=== PATIENT | male | born 1985 | race American Indian/Alaskan Native ===

== ENCOUNTER 2017-01-19 22:11 | Emergency (ER) | payer SELFPAY ==
[2017-01-19] MEDS ORDERED: NACL 0.9% 1000 ML 1,000 ML IV ONE (22:32)
[2017-01-19 23:21] LABS: Urine Drugs of Abuse Note Disclamer
[2017-01-19 23:33] LABS: Alanine Aminotransferase 5 units/L (7-56); Albumin 3.8 g/dL (3.9-5); Albumin/Globulin Ratio 1.4 %; Alkaline Phosphatase 39 units/L (35-129); Anion Gap 20 mmol/L; BUN/Creatinine Ratio 21.66; Bilirubin,Total < 0.2 mg/dL (0.1-1.2); Blood Urea Nitrogen 26 mg/dL (9-20); Calcium 8.7 mg/dL (8.4-10.2); Carbon Dioxide 24 mmol/L (22-30); Creatine Kinase 104 units/L (55-170); Glucose 177 mg/dL (75-100); Potassium 3.8 mmol/L (3.6-5.0); Sodium 135 mmol/L (137-145); Total Protein 6.6 g/dL (6.3-8.2)
[2017-01-19 23:36] LABS: Creatine Kinase MB < 1.0 ng/mL (0.0-4.0)
[2017-01-19 23:46] LABS: Bilirubin,Urine NEG (Negative); Blood,Urine NEG (Negative); Ketones,Urine TR mg/dL (Negative); Leukocyte Esterase,Urine TR (Negative); Mucus,Urine 3+ /HPF; Nitrite,Urine NEG (Negative); Urobilinogen,Urine < 2.0 mg/dL (<2.0)
[2017-01-19 23:56] LABS: Basophils % (Auto) 1.3 % (0.0-1.8); Eosinophils % (Auto) 1.1 % (0.0-4.3); Hematocrit 25.7 % (35.5-45.6); Hemoglobin 8.5 gm/dl (11.8-15.2); Mean Corpuscular HGB Conc 33 % (32-34); Mean Corpuscular Hemoglobin 29 pg (28-32); Mean Corpuscular Volume 87 fl (84-94); Platelet Count 338 K/mm3 (140-440); Red Blood Count 2.97 M/mm3 (3.65-5.03); Red Cell Distribution Width 14.3 % (13.2-15.2); White Blood Count 9.2 K/mm3 (4.5-11.0)
--- NOTE | 2017-01-20 00:19 | Emergency Department Report ---
HPI - General Chief Complaint: Syncope Time Seen by Provider: 01/19/17 22:32 - HPI HPI: The patient is a 31-year-old male who presents for evaluation of headache and seizure-like activity. The patient arrives with family member was present at bedside. She reports that approximately 20 minutes prior to arrival, the patient passed out and exhibited severe and constant shaking and twitching of the arms and legs bilaterally for approximately 10-20 seconds. She states that the patient was confused afterwards. The patient says that he does not recall the event. The patient complains of constant, generalized aching, bilateral headache, moderate in severity, present since his seizure occurred 20 minutes prior to arrival. The patient denies fever, head injury, neck pain, neck stiffness, vision or hearing changes, smell or taste changes, paresthesias, facial drooping, slurred speech, urine or bowel incontinence or retention, or other focal neurological deficit. He admits to heavy marijuana use throughout the day, one consumption, and little water intake. He states that the home that they were in when using the marijuana was very hot as the air-conditioning in the home was out. ED Past Medical Hx - Past Medical History Previous Medical History?: No - Surgical History Past Surgical History?: No - Social History Smoking Status: Current Every Day Smoker Substance Use Type: Alcohol - Medications Home Medications: Home Medications Medication Instructions Recorded Confirmed Last Taken Type HYDROcodone/APAP 7.5-325 [Milton 1 each PO Q8HR PRN #10 tablet 01/20/17 Unknown Rx 7.5-325 mg TAB] Ibuprofen [Motrin] 800 mg PO Q8HR PRN #15 tablet 01/20/17 Unknown Rx Ondansetron [Zofran TAB] 4 mg PO Q8HR PRN #15 tablet 01/20/17 Unknown Rx ED Review of Systems ROS: Stated complaint: PASSED OUT Other details as noted in HPI Constitutional: denies: fever ENT: denies: throat or neck pain Respiratory: denies: cough, shortness of breath Cardiovascular: denies: chest pain Endocrine: denies unexplained weight loss or gain Gastrointestinal: denies: abdominal pain, nausea Genitourinary: denies: dysuria Musculoskeletal: denies: leg swelling Skin: denies: rash Neurological: Reports headache and seizure Hematological/Lymphatic: denies: easy bleeding or easy bruising Psych: denies sadness or hopelessness Physical Exam - Physical Exam Vital Signs: Vital Signs 01/19/17 01/19/17 01/19/17 22:23 22:37 22:38 Temperature 98 F 98.2 F Pulse Rate 79 99 H Respiratory 16 18 18 Rate Blood Pressure 104/65 Blood Pressure 104/65 107/68 [Left] O2 Sat by Pulse 99 99 99 Oximetry Physical Exam: General: well-nourished, well-developed, no acute distress Head: Normocephalic, atraumatic Eyes: normal sclera, PERRL, EOM intact ENT: Mucous membranes are pale and dry Neck: No neck stiffness, no cervical adenopathy Respiratory: Breath sounds equal bilaterally, no wheezing, rales, or rhonchi Cardio: S1 and S2 present, no murmurs, rubs, gallops, capillary refill is delayed Abdomen: Normoactive bowel sounds, soft abdomen, no tenderness Musc: No pitting edema Skin: No rash Neuro: alert oriented x4, normal cognition, speech normal no facial drooping, no uvula or tongue deviation on protrusion, no deficit with rotation of neck or shoulder shrug, no obvious gross motor deficit in the upper or lower extremities with flexion or extension at the shoulder, elbow, wrist, hip, knee, or ankle bilaterally, no obvious gross sensation deficit to crude touch or 2 pt discrimination, 2+ symmetric reflexes on DTR testing, no dysmetria or dysdiadochokinesia, no coordination deficit with [id number] or [id number]-[id number] testing, romberg negative, patient able to to ambulate without abnormal gait Psych: Normal affect ED Course Vital Signs 01/19/17 01/19/17 01/19/17 22:23 22:37 22:38 Temperature 98 F 98.2 F Pulse Rate 79 99 H Respiratory 16 18 18 Rate Blood Pressure 104/65 Blood Pressure 104/65 107/68 [Left] O2 Sat by Pulse 99 99 99 Oximetry ED Medical Decision Making - Lab Data Result diagrams: 01/19/17 22:25 01/19/17 22:25 - Medical Decision Making The patient was seen and examined by myself. The patient is placed on a monitor technician and continuous pulse ox. On initial evaluation, the patient was found to be in no distress. As there are no neuro deficits or other findings on examination concerning for acute intracranial disease process, a CAT scan of the head will not be obtained at this time. IV access is established and the patient is given 1 L normal saline fluid bolus for treatment of his dehydration , and IV Reglan, Benadryl, and IV morphine for headache. Lab results revealed anemia, hemoglobin 8.5, and otherwise labs were grossly unremarkable. The patient was reevaluated and reported that their symptoms were markedly improved. The patient is stable for discharge with outpatient follow- up. The patient is given follow-up and return instructions. The patient expressed understanding and agreed with the plan. The patient is discharged in stable condition. Critical care attestation.: If time is entered above; I have spent that time in minutes in the direct care of this critically ill patient, excluding procedure time. ED Disposition Clinical Impression: Seizure, Dehydration, Orthostatic hypotension Acute nonintractable headache Qualifiers: Headache type: tension-type Qualified Code(s): G44.209 - Tension-type headache , unspecified, not intractable Disposition: DISCHARGED TO HOME OR SELFCARE Is pt being admited?: No Does the pt Need Aspirin: No Condition: Stable Instructions: Acute Headache (ED), New-Onset Seizure in Adults (ED), Dehydration (ED), Cannabis Abuse (ED) Referrals: PRIMARY CAREMD [Primary Care Provider] - 3-5 Days DEIDRE MEDRANO MD [Staff Physician] - 3-5 Days Time of Disposition: 00:19
[2017-01-20 00:30] LABS: Erythrocyte Sedimentation Rate 18 mm/Hr (0-20)
[2017-01-20] MEDS ORDERED: MORPHINE IV ONE (00:33)
[2017-01-20] MEDS ORDERED: REGLAN IV ONE (00:33)
[2017-01-20] MEDS ORDERED: BENADRYL IV ONE (00:33)
[2017-01-20] MEDS ORDERED: NACL 0.9% 1000 ML 1,000 ML IV ONE (00:36)
[2017-01-20 02:10] VITALS: BP 116/87
[2017-01-20 05:26] LABS: C-Reactive Protein 0.1 mg/dL (0.00-1.30)
--- NOTE | 2017-01-20 09:26 | XRay Report ---
Single view chest: History: Chest pain. Findings: Normal cardiomediastinal silhouette. Trachea is midline. No consolidation, pneumothorax or pleural effusion. Impression: No acute cardiopulmonary findings.
== END 2017-01-20 02:10 | disposition home or self-care (01) ==
LOC: ED 22:11
DX: I95.1 Orthostatic hypotension (principal); G44.209 Tension-type headache, unspecified, not intractable; E86.0 Dehydration; R56.9 Unspecified convulsions; F17.200 Nicotine dependence, unspecified, uncomplicated
CPT/HCPCS: 36415; 71010; 80053; 80307; 81001; 82550; 82553; 82962; 83880; 84484; 85025; 85379; 85652; 86140; 86850; 86900; 86901; 93005; 93010; 96361; 96374; 96375; 99285; J2270; J2765; J7030